=== PATIENT | female | born 1975 | race African-American/Black ===

== ENCOUNTER 2020-08-07 21:56 | Inpatient (IN) | payer MEDICAID ==
[~2020-08-07] VITALS: Ht 170.2 cm; Wt 122.0 kg
[~2020-08-07 21:56] MED LIST: BENZ1TAB7 PO; HYDR25TA4 PO; METO25TA6 PO; PALI234D IM; SERT-433 PO
[2020-08-07] MEDS ORDERED: acetaminophen 325mg tablet PO ONE (22:05)
[2020-08-07 22:21] LABS: BASOPHILS # (AUTO) 0.1 X10'3 (0-0.2); BASOPHILS % (AUTO) 0.2 % (0-1); EOSINOPHILS # (AUTO) 0.1 X10'3 (0-0.9); HEMOGLOBIN 11.9 g/dl (12.0-16.0); NEUTROPHILS % (AUTO) 87.6 % (42-75); RED CELL DISTRIBUTION WIDTH 14.1 % (11.5-14.5)
[2020-08-07 22:23] LABS: EOSINOPHILS % (AUTO) 0.2 % (0-6); HEMATOCRIT 35.5 % (35.0-45.0); LYMPHOCYTES # (AUTO) 1.5 X10'3 (1.1-4.8); LYMPHOCYTES % (AUTO) 5.3 % (21-51); MEAN CORPUSCULAR HEMOGLOBIN 27.8 PG (27.0-31.0); MEAN CORPUSCULAR HGB CONC 33.5 g/dL (33.0-36.5); MEAN PLATELET VOLUME 8.2 FL (7.4-10.4); MONOCYTES # (AUTO) 1.8 X10'3 (0-0.9); MONOCYTES % (AUTO) 6.7 % (2-12); NEUTROPHILS # (AUTO) 24.1 X10'3 (1.8-7.7); PLATELET COUNT 646 X10'3 (140-440); RED BLOOD COUNT 4.28 X10'6 (4.20-5.60)
[2020-08-07 22:28] LABS: WHITE BLOOD COUNT 27.5 X10'3 (4.5-11.0)
[2020-08-07] MEDS ORDERED: morphine 10mg/ml inj. IV ONE (22:30)
[2020-08-07] MEDS ORDERED: NAPR-1166 PO (22:30)
[2020-08-07] MEDS ORDERED: BUS15T PO (22:30)
[2020-08-07] MEDS ORDERED: vancomycin/NS 1 GM ADD-VANTAGE 250 ML IV ONE (22:30)
[2020-08-07] MEDS ORDERED: HYDR50TA65 PO (22:30)
[2020-08-07] MEDS ORDERED: normal saline 1000ML IV soln IV ONE (22:30)
[2020-08-07] MEDS ORDERED: MIRT45TA83 PO (22:30)
[2020-08-07] MEDS ORDERED: LUMA42CA PO (22:30)
[2020-08-07] MEDS ORDERED: CefTRIAXone 2gm/D5W 50ml BAG 50 ML IV ONE (22:30)
--- NOTE | 2020-08-07 22:30 | NUR ---
Pt reported she is unable to urinate.
[2020-08-07 22:56] LABS: ALANINE AMINOTRANSFERASE 9 U/L (12-78); ALBUMIN 1.9 G/DL (3.4-5.0); ALBUMIN/GLOBULIN RATIO 0.3 (1.1-1.5); ALKALINE PHOSPHATASE 112 IU/L (46-116); ANION GAP 10 (8-16); ASPARTATE AMINO TRANSFERASE 10 U/L (10-37); BILIRUBIN,TOTAL 0.7 MG/DL (0.1-1.0); BLOOD UREA NITROGEN 20 MG/DL (7-18); BUN/CREATININE RATIO 13.6 (6.6-38.0); CALCIUM 9.3 MG/DL (8.5-10.1); CHLORIDE 93 MMOL/L (99-107); CREATININE 1.47 MG/DL (0.40-0.90); GLUCOSE 152 MG/DL (70-104); SODIUM 132 MMOL/L (135-145); TOTAL CARBON DIOXIDE 29.3 MMOL/L (24-32); eGFR 47 ML/MIN
[2020-08-07] MEDS ORDERED: iohexol 300mg/ml 100ml inj. ONE (22:56)
[2020-08-07] MEDS ORDERED: HYDROmorphone 1 mg/ml syringe IV ONE (23:05)
[2020-08-07 23:07] LABS: PLATELET ESTIMATE INCREASED; TOTAL CELLS COUNTED 100; TOXIC VACUOLATION 1+
[2020-08-07 23:08] LABS: LARGE PLATELETS FEW; TOXIC GRANULATION 1+
[2020-08-07 23:09] LABS: HCG SERUM QL NEGATIVE
[2020-08-07 23:09] LABS: POLYCHROMASIA FEW
[2020-08-07] MEDS ORDERED: potassium Cl 20 mEq SR tablet PO STA (23:11)
--- NOTE | 2020-08-07 23:23 | NUR ---
PT taken for CT scan.
--- NOTE | 2020-08-07 23:33 | NUR ---
Pt returned from CT and is observed to have itching sensation. Addendum: 08/07/20 at 2339 by REJI MD assessed pt at bedside. Pt denies any diff breathing, only itching sensation. Pt stated she started feeling the itching sensation after CT contrast was administered. MD to order Benadryl 25MG as intervention.
[2020-08-07 23:37] LABS: C-REACTIVE PROTEIN 34.16 MG/DL (0.0-0.5)
[2020-08-07] MEDS ORDERED: diphenhydrAMINE 50 mg/ml inj IV ONE ×2 (23:40→23:55)
[2020-08-08] MEDS ORDERED: LORazepam 2 mg/ml vial IV ONE (00:25)
[2020-08-08] MEDS ORDERED: hydrOXYzine 25 MG tablet PO ONE (00:40)
[2020-08-08] MEDS ORDERED: potassium Cl 20 mEq SR tablet PO PRN (00:50)
[2020-08-08] MEDS ORDERED: potassium Cl 40MEQ/1/2NS 520ml 520 ML IV PRN ×2 (00:50)
[2020-08-08] MEDS ORDERED: morphine 2 MG/ML inj. syringe IV PRN (00:50)
[2020-08-08] MEDS ORDERED: ondansetron/PF 4mg/2ml inj IV PRN (00:50)
[2020-08-08] MEDS ORDERED: hydrOXYzine 25 MG tablet PO PRN (00:55)
[2020-08-08] MEDS: normal saline 1000ml 1,000 ML IV SCH ×3 (01:04→20:33)
--- NOTE | 2020-08-08 02:46 | NUR ---
Received report from ER nurse Anant. UA not collected at this time as it was reported patient unable to void. Room is ready for patient.
--- NOTE | 2020-08-08 03:02 | NUR ---
Pt currently resting in bed, pt notifed of bed transfer.
[2020-08-08 04:30] VITALS: BP 117/72
[2020-08-08] MEDS: potassium Cl 20 mEq SR tablet PO PRN ×2 (04:52→10:20)
[2020-08-08] MEDS: morphine 2 MG/ML inj. syringe IV PRN ×2 (04:53→10:24)
[2020-08-08 05:42] LABS: CLARITY,URINE SLIGHTLY CLOUDY (Clear); COLOR,URINE YELLOW (Yellow); GLUCOSE, URINE NEGATIVE (Neg); KETONES,URINE NEGATIVE (Neg); LEUKOCYTE ESTERASE ,URINE NEGATIVE (Neg); NITRITES, URINE NEGATIVE (Neg); OCCULT BLOOD,URINE LARGE (Neg); PROTEIN,URINE TRACE mg/dl (Neg)
[2020-08-08 05:44] LABS: UA COLLECTION TYPE CLN CATCH MIDSTREAM
[2020-08-08 05:49] LABS: BACTERIA,URINE 1+ /HPF (Neg); MUCUS STRANDS FEW /LPF (Neg); SQUAMOUS EPITHELIAL CELL,UR MODERATE /LPF (FEW)
--- NOTE | 2020-08-08 06:18 | NUR ---
Report given to Natasha MARIA.
[2020-08-08 06:30] VITALS: BP 113/72
[2020-08-08] MEDS: busPIRone 15mg tablet PO SCH ×2 (07:21→20:27)
[2020-08-08] MEDS: piperacillin/tazo 3.375gm/50ml 50 ML IV SCH ×3 (07:21→23:09)
[2020-08-08] MEDS: LUMATEPERONE TOSYLATE PO SCH (07:22)
[2020-08-08] MEDS: K and/or MAG REPLACEMENT MC SCH ×2 (07:22→20:00)
[2020-08-08] MEDS ORDERED: FLU VACC QS2020-21(6MOS UP)/PF 60 MCG/0.5 ML SYRINGE IMVAC ONE (10:00)
[2020-08-08 10:14] VITALS: BP 121/73
[2020-08-08] MEDS: vancomycin/NS 1 GM ADD-VANTAGE 250 ML IV SCH (13:10)
[2020-08-08 18:00] VITALS: BP 115/74
--- NOTE | 2020-08-08 18:27 | NUR ---
Problems reprioritized. Patient report given, questions answered & plan of care reviewed with CANDACE STAUFFER.
[2020-08-08] MEDS: mirtazapine 15mg tablet PO SCH (20:26)
[2020-08-08] MEDS: lactobacillus rhamnosus 10,000 MMU CELLS/CAPSULE PO SCH (20:27)
[2020-08-08] MEDS: heparin, porcine 5000 units/ml vial SQ SCH (20:32)
[2020-08-08 22:00] VITALS: BP 114/70
[2020-08-08] MEDS ORDERED: vancomycin/NS 1 GM ADD-VANTAGE 250 ML IV SCH (23:00)
[2020-08-09] MEDS: vancomycin/NS 1 GM ADD-VANTAGE 250 ML IV SCH ×2 (01:50→13:00)
[2020-08-09] MEDS: normal saline 1000ml 1,000 ML IV SCH ×3 (06:50→23:01)
[2020-08-09] MEDS: LUMATEPERONE TOSYLATE PO SCH (08:00)
[2020-08-09] MEDS: piperacillin/tazo 3.375gm/50ml 50 ML IV SCH (08:00)
[2020-08-09] MEDS: busPIRone 15mg tablet PO SCH ×2 (08:47→19:57)
[2020-08-09] MEDS: lactobacillus rhamnosus 10,000 MMU CELLS/CAPSULE PO SCH ×2 (08:47→19:57)
[2020-08-09] MEDS: heparin, porcine 5000 units/ml vial SQ SCH ×2 (08:47→20:04)
[2020-08-09 08:53] LABS: BASOPHILS # (AUTO) 0.1 X10'3 (0-0.2); BASOPHILS % (AUTO) 0.3 % (0-1); EOSINOPHILS # (AUTO) 0.2 X10'3 (0-0.9); EOSINOPHILS % (AUTO) 1.1 % (0-6); HEMATOCRIT 29.9 % (35.0-45.0); HEMOGLOBIN 9.8 g/dl (12.0-16.0); LYMPHOCYTES # (AUTO) 1.6 X10'3 (1.1-4.8); LYMPHOCYTES % (AUTO) 7.2 % (21-51); MEAN CORPUSCULAR HEMOGLOBIN 27.5 PG (27.0-31.0); MEAN CORPUSCULAR HGB CONC 32.7 g/dL (33.0-36.5); MEAN CORPUSCULAR VOLUME 84.1 FL (78-98); MEAN PLATELET VOLUME 8.2 FL (7.4-10.4); MONOCYTES # (AUTO) 1.9 X10'3 (0-0.9); MONOCYTES % (AUTO) 8.5 % (2-12); NEUTROPHILS # (AUTO) 18.5 X10'3 (1.8-7.7); NEUTROPHILS % (AUTO) 82.9 % (42-75); PLATELET COUNT 575 X10'3 (140-440); RED BLOOD COUNT 3.56 X10'6 (4.20-5.60); RED CELL DISTRIBUTION WIDTH 14.6 % (11.5-14.5); WHITE BLOOD COUNT 22.4 X10'3 (4.5-11.0)
[2020-08-09 09:30] LABS: ALANINE AMINOTRANSFERASE 6 U/L (12-78); ALBUMIN 1.3 G/DL (3.4-5.0); ALBUMIN/GLOBULIN RATIO 0.2 (1.1-1.5); ALKALINE PHOSPHATASE 94 IU/L (46-116); ANION GAP 11 (8-16); ASPARTATE AMINO TRANSFERASE 11 U/L (10-37); BILIRUBIN,TOTAL 0.3 MG/DL (0.1-1.0); BLOOD UREA NITROGEN 19 MG/DL (7-18); BUN/CREATININE RATIO 15.3 (6.6-38.0); CALCIUM 8.5 MG/DL (8.5-10.1); CHLORIDE 99 MMOL/L (99-107); CREATININE 1.24 MG/DL (0.40-0.90); GLUCOSE 90 MG/DL (70-104); POTASSIUM 4.1 MMOL/L (3.5-5.1); SODIUM 134 MMOL/L (135-145); TOTAL CARBON DIOXIDE 24.2 MMOL/L (24-32); TOTAL PROTEIN 6.7 G/DL (6.4-8.2); eGFR 57 ML/MIN
[2020-08-09] MEDS ORDERED: FLU VACC QS2020-21(6MOS UP)/PF 60 MCG/0.5 ML SYRINGE IMVAC ONE (10:00)
[2020-08-09 10:06] LABS: TOTAL CELLS COUNTED 100
[2020-08-09 10:09] LABS: GIANT PLATELET FEW; LARGE PLATELETS FEW; PLATELET ESTIMATE INCREASED
[2020-08-09 10:11] LABS: TOXIC GRANULATION 1+
[2020-08-09] MEDS: morphine 2 MG/ML inj. syringe IV PRN ×2 (10:41→17:57)
[2020-08-09] MEDS ORDERED: VANCOMYCIN LEVEL IV ONE (12:30)
[2020-08-09 18:00] VITALS: BP 108/69
[2020-08-09] MEDS: mirtazapine 15mg tablet PO SCH (19:57)
[2020-08-09] MEDS: K and/or MAG REPLACEMENT MC SCH (20:00)
[2020-08-09] MEDS: ceFAZolin/D5W- 1GM premix 50 ML IV SCH (20:13)
[2020-08-09 22:00] VITALS: BP 123/75
[2020-08-10] VITALS (24 sets, daily range): BP systolic 119–145; BP diastolic 68–100
[2020-08-10] MEDS: vancomycin/NS 1 GM ADD-VANTAGE 250 ML IV SCH (01:16)
[2020-08-10] MEDS: ceFAZolin/D5W- 1GM premix 50 ML IV SCH ×4 (02:47→19:47)
[2020-08-10] MEDS: morphine 2 MG/ML inj. syringe IV PRN (02:52)
--- NOTE | 2020-08-10 06:30 | NUR ---
Patient in room [facility]TH[facility] 4007. I have received report from Keena MARIA and had the opportunity to ask questions and assume patient care.
--- NOTE | 2020-08-10 06:30 | NUR ---
Patient in room [facility]TH[facility] 4007. I have received report from Keena MARIA and had the opportunity to ask questions and assume patient care.
[2020-08-10] MEDS: busPIRone 15mg tablet PO SCH ×2 (07:29→19:47)
[2020-08-10] MEDS: lactobacillus rhamnosus 10,000 MMU CELLS/CAPSULE PO SCH ×2 (07:30→19:47)
[2020-08-10] MEDS: heparin, porcine 5000 units/ml vial SQ SCH ×2 (07:30→19:48)
[2020-08-10] MEDS: K and/or MAG REPLACEMENT MC SCH ×2 (08:00→20:00)
[2020-08-10] MEDS: LUMATEPERONE TOSYLATE PO SCH (08:00)
[2020-08-10 08:14] LABS: BASOPHILS # (AUTO) 0.1 X10'3 (0-0.2); BASOPHILS % (AUTO) 0.5 % (0-1); EOSINOPHILS # (AUTO) 0.3 X10'3 (0-0.9); EOSINOPHILS % (AUTO) 1.8 % (0-6); HEMATOCRIT 28.4 % (35.0-45.0); HEMOGLOBIN 9.4 g/dl (12.0-16.0); LYMPHOCYTES # (AUTO) 2.3 X10'3 (1.1-4.8); LYMPHOCYTES % (AUTO) 13.9 % (21-51); MEAN CORPUSCULAR HEMOGLOBIN 27.9 PG (27.0-31.0); MEAN CORPUSCULAR HGB CONC 33.3 g/dL (33.0-36.5); MEAN CORPUSCULAR VOLUME 83.7 FL (78-98); MEAN PLATELET VOLUME 7.9 FL (7.4-10.4); MONOCYTES # (AUTO) 1.5 X10'3 (0-0.9); MONOCYTES % (AUTO) 9.1 % (2-12); NEUTROPHILS # (AUTO) 12.3 X10'3 (1.8-7.7); NEUTROPHILS % (AUTO) 74.7 % (42-75); PLATELET COUNT 601 X10'3 (140-440); RED BLOOD COUNT 3.39 X10'6 (4.20-5.60); RED CELL DISTRIBUTION WIDTH 14.1 % (11.5-14.5); WHITE BLOOD COUNT 16.4 X10'3 (4.5-11.0)
[2020-08-10 08:33] LABS: ALANINE AMINOTRANSFERASE 9 U/L (12-78); ALBUMIN 1.3 G/DL (3.4-5.0); ALBUMIN/GLOBULIN RATIO 0.2 (1.1-1.5); ALKALINE PHOSPHATASE 81 IU/L (46-116); ANION GAP 9 (8-16); ASPARTATE AMINO TRANSFERASE 16 U/L (10-37); BILIRUBIN,TOTAL 0.2 MG/DL (0.1-1.0); BLOOD UREA NITROGEN 13 MG/DL (7-18); BUN/CREATININE RATIO 13.3 (6.6-38.0); CHLORIDE 100 MMOL/L (99-107); CREATININE 0.98 MG/DL (0.40-0.90); GLUCOSE 86 MG/DL (70-104); POTASSIUM 3.8 MMOL/L (3.5-5.1); SODIUM 133 MMOL/L (135-145); TOTAL CARBON DIOXIDE 23.8 MMOL/L (24-32); TOTAL PROTEIN 6.8 G/DL (6.4-8.2); eGFR 75 ML/MIN
[2020-08-10 10:08] LABS: TOTAL CELLS COUNTED 100
[2020-08-10 10:12] LABS: PLATELET ESTIMATE INCREASED
[2020-08-10 10:17] LABS: GIANT PLATELET FEW; LARGE PLATELETS FEW
[2020-08-10 10:21] LABS: TOXIC GRANULATION 1+
[2020-08-10 10:22] LABS: TOXIC VACUOLATION 1+
--- NOTE | 2020-08-10 12:37 | NUR ---
Patient doesn't want the Flu Vac today, wants to wait until discharging home.
[2020-08-10] MEDS: VANCOmycin 1250MG/NS 250ml Bag 250 ML IV SCH (12:46)
[2020-08-10] MEDS: normal saline 1000ml 1,000 ML IV SCH ×2 (12:50→22:50)
--- NOTE | 2020-08-10 13:22 | NUR ---
Spoke with primary nurse, Patient will be having and I&D of left tibial abscess today. Supplies given to nurse.
[2020-08-10 13:42] LABS: HIV ANTIBODY 1&2 RAPID NON-REACTIVE (Neg)
[2020-08-10] MEDS ORDERED: ringers solution, lacted 1,000 ML IV SCH (16:00)
[2020-08-10] MEDS ORDERED: meperidine/PF 25mg/ml syringe IV PRN ×2 (16:00)
[2020-08-10] MEDS ORDERED: ondansetron/PF 4mg/2ml inj IV PRN (16:00)
[2020-08-10] MEDS ORDERED: morphine 2 MG/ML inj. syringe IV PRN (16:00)
[2020-08-10] MEDS ORDERED: proCHLORperazine 10 MG/2 ml inj IV PRN (16:00)
[2020-08-10] MEDS ORDERED: morphine 4 MG/ML inj SYRINge IV PRN (16:00)
[2020-08-10] MEDS ORDERED: fentaNYL/PF 50MCG/1 ML 2ML syringe ONE ×2 (16:07→16:20)
[2020-08-10] MEDS ORDERED: midazolam 1 mg/ML 2ml injection ONE (16:07)
--- NOTE | 2020-08-10 16:23 | NUR ---
Problems reprioritized. Patient report given, questions answered & plan of care reviewed with Saul MARIA.
[2020-08-10] MEDS ORDERED: ondansetron/PF 4mg/2ml inj ONE (16:25)
[2020-08-10] MEDS ORDERED: LIDOcaine 2% (20mg/ml) 5ml vial ONE (16:25)
[2020-08-10] MEDS ORDERED: succinylcholine 20mg/ml inj IV ONE (16:25)
[2020-08-10] MEDS ORDERED: dexamethasone sod phosphate 4mg/ml inj. ONE (16:25)
[2020-08-10] MEDS ORDERED: propofol inj 20 ML IV ONE (16:25)
[2020-08-10] MEDS ORDERED: metoprolol tartrate 1mg/ml inj IV ONE (16:42)
[2020-08-10] MEDS ORDERED: glycopyrrolate 0.2mg/ml inj ONE (16:43)
[2020-08-10] MEDS ORDERED: neostigmine methylsulfate 1 MG/ML 10ml vial ONE (16:43)
[2020-08-10] MEDS ORDERED: rocuronium 10mg/ml inj IV ONE (16:43)
--- NOTE | 2020-08-10 17:04 | NUR ---
Received from OR via BED, accompanied by Anesthesiologist DR WADE and report given by Anesthesiologist. PT DROWSY, PAINFUL. LEFT LOWER LEG W/WOUND VAC DRSG COVERING INCISION/FOAM TO LCS 125MMHG W/S/S DRAINAGE IN TUBING. LEFT FOOT 3+EDEMA. PIV OUT AND LYING IN BED NEXT TO PTS ARM, STARTED NEW 20 GAUGE PIV TO LEFT HAND, PAIN MEDICATION GIVEN W/RELIF IN PAIN. Addendum: 08/10/20 at 1920 by Margaret Birmingham RN Amended: Links added.
[2020-08-10] MEDS: meperidine/PF 25mg/ml syringe IV PRN ×2 (17:30→17:36)
--- NOTE | 2020-08-10 17:58 | NUR ---
received report on pt in recovery room by reading recovery teacher. Pt had I&D of left lower extremities with wound vac placement at 125. Has about 30cc serous sang drainage, New 20g PIV left hand. ESBL 150ml, NS 600ml, Demerol for pain. Pt will be transferred after shift change.
--- NOTE | 2020-08-10 18:15 | NUR ---
Patient in room ORTH[facility] 4007. I have received report from CANDACE Hughes and had the opportunity to ask questions and assume patient care.
--- NOTE | 2020-08-10 18:54 | NUR ---
Report called to receiving nurse. Transferred via BED, TONGUE RING ONLY Belongings SENT W/PT TO ROOM 4007. RECEIVING RN AT BEDSIDE TO RECEIVE PT. BLL, CALL LIGHT GIVEN, SIDE RAILS UP X 2. Special Issues communicated to receiving nurse. YES. Addendum: 08/10/20 at 1925 by Margaret Birmingham RN Amended: Links added.
[2020-08-10] MEDS: mirtazapine 15mg tablet PO SCH (19:48)
[2020-08-10] MEDS: HYDROcodone/acetaminophen 10/325mg tab PO PRN (21:07)
[2020-08-11] VITALS (7 sets, daily range): BP systolic 127–150; BP diastolic 64–88
[2020-08-11] MEDS: VANCOmycin 1250MG/NS 250ml Bag 250 ML IV SCH ×2 (01:18→12:29)
[2020-08-11] MEDS: HYDROcodone/acetaminophen 10/325mg tab PO PRN ×4 (01:18→19:41)
[2020-08-11] MEDS: ceFAZolin/D5W- 1GM premix 50 ML IV SCH ×4 (02:04→19:42)
--- NOTE | 2020-08-11 06:15 | NUR ---
Problems reprioritized. Patient report given, questions answered & plan of care reviewed with CANDACE Hughes.
[2020-08-11] MEDS: K and/or MAG REPLACEMENT MC SCH ×2 (08:00→19:43)
[2020-08-11] MEDS: LUMATEPERONE TOSYLATE PO SCH (08:00)
[2020-08-11 08:06] LABS: BASOPHILS % (AUTO) 0.3 % (0-1); EOSINOPHILS % (AUTO) 0 % (0-6); HEMATOCRIT 27.6 % (35.0-45.0); HEMOGLOBIN 9.1 g/dl (12.0-16.0); LYMPHOCYTES # (AUTO) 1.3 X10'3 (1.1-4.8); LYMPHOCYTES % (AUTO) 8.4 % (21-51); MEAN CORPUSCULAR HEMOGLOBIN 27.5 PG (27.0-31.0); MEAN CORPUSCULAR VOLUME 83.3 FL (78-98); MONOCYTES # (AUTO) 1.1 X10'3 (0-0.9); MONOCYTES % (AUTO) 7.3 % (2-12); NEUTROPHILS # (AUTO) 12.9 X10'3 (1.8-7.7); PLATELET COUNT 635 X10'3 (140-440); RED BLOOD COUNT 3.32 X10'6 (4.20-5.60); RED CELL DISTRIBUTION WIDTH 14.4 % (11.5-14.5); WHITE BLOOD COUNT 15.3 X10'3 (4.5-11.0)
[2020-08-11] MEDS: normal saline 1000ml 1,000 ML IV SCH ×2 (08:16→21:17)
[2020-08-11 08:46] LABS: ALANINE AMINOTRANSFERASE 11 U/L (12-78); ALBUMIN 1.4 G/DL (3.4-5.0); ALBUMIN/GLOBULIN RATIO 0.3 (1.1-1.5); ANION GAP 5 (8-16); ASPARTATE AMINO TRANSFERASE 13 U/L (10-37); BILIRUBIN,TOTAL 0.1 MG/DL (0.1-1.0); BLOOD UREA NITROGEN 9 MG/DL (7-18); BUN/CREATININE RATIO 10.8 (6.6-38.0); CALCIUM 8.7 MG/DL (8.5-10.1); CHLORIDE 104 MMOL/L (99-107); CREATININE 0.83 MG/DL (0.40-0.90); GLUCOSE 136 MG/DL (70-104); POTASSIUM 4.5 MMOL/L (3.5-5.1); SODIUM 134 MMOL/L (135-145); TOTAL CARBON DIOXIDE 24.7 MMOL/L (24-32); TOTAL PROTEIN 6.8 G/DL (6.4-8.2); eGFR > 90 ML/MIN
[2020-08-11] MEDS: lactobacillus rhamnosus 10,000 MMU CELLS/CAPSULE PO SCH ×2 (08:52→19:41)
[2020-08-11] MEDS: busPIRone 15mg tablet PO SCH ×2 (08:52→19:41)
[2020-08-11] MEDS: heparin, porcine 5000 units/ml vial SQ SCH ×2 (08:53→19:42)
[2020-08-11 09:11] LABS: ALKALINE PHOSPHATASE 73 IU/L (46-116)
[2020-08-11] MEDS ORDERED: FLU VACC QS2020-21(6MOS UP)/PF 60 MCG/0.5 ML SYRINGE IMVAC ONE (10:00)
[2020-08-11 11:16] LABS: PLATELET ESTIMATE INCREASED; TOTAL CELLS COUNTED 100
[2020-08-11 11:17] LABS: LARGE PLATELETS FEW
--- NOTE | 2020-08-11 18:00 | NUR ---
Problems reprioritized. Patient report given, questions answered & plan of care reviewed with Magalie MARIA.
--- NOTE | 2020-08-11 18:00 | NUR ---
Patient in room ORTH[facility] 4007. I have received report from CANDACE Hughes and had the opportunity to ask questions and assume patient care.
[2020-08-11 19:01] LABS: HBSAG SCREEN Negative (Negative); HEP A AB, IGM Negative (Negative); HEPATITIS C ANTIBODY <0.1 s/co ratio (0.0-0.9)
[2020-08-11] MEDS: mirtazapine 15mg tablet PO SCH (19:41)
[2020-08-12] MEDS ORDERED: VANCOMYCIN LEVEL IV ONE (00:30)
[2020-08-12] MEDS: VANCOmycin 1250MG/NS 250ml Bag 250 ML IV SCH (00:56)
[2020-08-12 01:00] LABS: BASOPHILS # (AUTO) 0.1 X10'3 (0-0.2); BASOPHILS % (AUTO) 0.4 % (0-1); MEAN PLATELET VOLUME 7.7 FL (7.4-10.4)
[2020-08-12 01:02] LABS: EOSINOPHILS # (AUTO) 0.1 X10'3 (0-0.9); EOSINOPHILS % (AUTO) 0.6 % (0-6); HEMATOCRIT 26.9 % (35.0-45.0); LYMPHOCYTES # (AUTO) 2.6 X10'3 (1.1-4.8); LYMPHOCYTES % (AUTO) 17.6 % (21-51); MEAN CORPUSCULAR HEMOGLOBIN 28.1 PG (27.0-31.0); MEAN CORPUSCULAR HGB CONC 33.7 g/dL (33.0-36.5); MEAN CORPUSCULAR VOLUME 83.4 FL (78-98); MONOCYTES # (AUTO) 1.3 X10'3 (0-0.9); MONOCYTES % (AUTO) 8.6 % (2-12); NEUTROPHILS # (AUTO) 10.6 X10'3 (1.8-7.7); NEUTROPHILS % (AUTO) 72.8 % (42-75); PLATELET COUNT 683 X10'3 (140-440); RED BLOOD COUNT 3.22 X10'6 (4.20-5.60); RED CELL DISTRIBUTION WIDTH 14.5 % (11.5-14.5); WHITE BLOOD COUNT 14.6 X10'3 (4.5-11.0)
[2020-08-12 01:05] LABS: ALANINE AMINOTRANSFERASE 12 U/L (12-78); ALBUMIN 1.4 G/DL (3.4-5.0); ALBUMIN/GLOBULIN RATIO 0.3 (1.1-1.5); ALKALINE PHOSPHATASE 76 IU/L (46-116); ANION GAP 4 (8-16); ASPARTATE AMINO TRANSFERASE 16 U/L (10-37); BILIRUBIN,TOTAL 0.1 MG/DL (0.1-1.0); BLOOD UREA NITROGEN 10 MG/DL (7-18); BUN/CREATININE RATIO 10.1 (6.6-38.0); CALCIUM 8.4 MG/DL (8.5-10.1); CHLORIDE 104 MMOL/L (99-107); CREATININE 0.99 MG/DL (0.40-0.90); GLUCOSE 128 MG/DL (70-104); SODIUM 135 MMOL/L (135-145); TOTAL CARBON DIOXIDE 26.9 MMOL/L (24-32); TOTAL PROTEIN 6.6 G/DL (6.4-8.2); VANCOMYCIN,TROUGH 14.1 UG/ML (6.0-14.0); eGFR 74 ML/MIN
[2020-08-12] MEDS: ceFAZolin/D5W- 1GM premix 50 ML IV SCH ×4 (02:00→19:17)
[2020-08-12 03:23] LABS: ANISOCYTOSIS 1+; HYPOCHROMASIA 1+; LARGE PLATELETS FEW; PLATELET ESTIMATE INCREASED; TOTAL CELLS COUNTED 100
[2020-08-12] MEDS: normal saline 1000ml 1,000 ML IV SCH ×3 (04:50→22:29)
--- NOTE | 2020-08-12 06:22 | NUR ---
Problems reprioritized. Patient report given, questions answered & plan of care reviewed with CANDACE Macedo.
--- NOTE | 2020-08-12 06:34 | NUR ---
Patient in room [facility]TH[facility] 4007. I have received report from Magalie MARIA and had the opportunity to ask questions and assume patient care.
[2020-08-12 07:00] VITALS: BP 149/99
[2020-08-12] MEDS: busPIRone 15mg tablet PO SCH ×2 (07:14→19:13)
[2020-08-12] MEDS: lactobacillus rhamnosus 10,000 MMU CELLS/CAPSULE PO SCH ×2 (07:14→19:13)
[2020-08-12] MEDS: heparin, porcine 5000 units/ml vial SQ SCH ×2 (07:15→19:15)
[2020-08-12] MEDS: HYDROcodone/acetaminophen 10/325mg tab PO PRN ×3 (07:15→19:14)
[2020-08-12] MEDS: LUMATEPERONE TOSYLATE PO SCH (07:22)
[2020-08-12] MEDS: K and/or MAG REPLACEMENT MC SCH ×2 (08:00→19:17)
[2020-08-12 10:00] VITALS: BP 118/73
--- NOTE | 2020-08-12 16:48 | NUR ---
patient given Clyde x2 for 8/10 pain with effect. left leg wound continues with wound vac @125mls. cannister changed. 120mls sero sang drainage observed. dr Navarro gave order ok for patient to sit in chair, not to work with PT yet. PT aware. All cares given. will continue to monitor.
[2020-08-12 18:00] VITALS: BP 134/92
--- NOTE | 2020-08-12 18:28 | NUR ---
Problems reprioritized. Patient report given, questions answered & plan of care reviewed with robert MARIA.
[2020-08-12] MEDS: mirtazapine 15mg tablet PO SCH (19:15)
[2020-08-12 22:00] VITALS: BP 109/88
[2020-08-13] MEDS: ceFAZolin/D5W- 1GM premix 50 ML IV SCH ×4 (01:40→20:22)
[2020-08-13] MEDS: HYDROcodone/acetaminophen 10/325mg tab PO PRN (04:59)
[2020-08-13 06:00] VITALS: BP 133/86
--- NOTE | 2020-08-13 06:38 | NUR ---
Problems reprioritized. Patient report given, questions answered & plan of care reviewed with Sharona MARIA.
[2020-08-13 07:21] LABS: BASOPHILS # (AUTO) 0.1 X10'3 (0-0.2); BASOPHILS % (AUTO) 0.7 % (0-1); EOSINOPHILS # (AUTO) 0.3 X10'3 (0-0.9); MEAN PLATELET VOLUME 7.4 FL (7.4-10.4)
[2020-08-13 07:22] LABS: EOSINOPHILS % (AUTO) 2.1 % (0-6); HEMATOCRIT 26.1 % (35.0-45.0); LYMPHOCYTES # (AUTO) 3.7 X10'3 (1.1-4.8); LYMPHOCYTES % (AUTO) 23.9 % (21-51); MEAN CORPUSCULAR HEMOGLOBIN 28.6 PG (27.0-31.0); MEAN CORPUSCULAR HGB CONC 34.4 g/dL (33.0-36.5); MEAN CORPUSCULAR VOLUME 83.2 FL (78-98); MONOCYTES # (AUTO) 1.1 X10'3 (0-0.9); MONOCYTES % (AUTO) 7.2 % (2-12); NEUTROPHILS # (AUTO) 10.1 X10'3 (1.8-7.7); NEUTROPHILS % (AUTO) 66.1 % (42-75); PLATELET COUNT 760 X10'3 (140-440); RED BLOOD COUNT 3.14 X10'6 (4.20-5.60); RED CELL DISTRIBUTION WIDTH 14.5 % (11.5-14.5); WHITE BLOOD COUNT 15.3 X10'3 (4.5-11.0)
[2020-08-13 07:24] LABS: ALANINE AMINOTRANSFERASE 10 U/L (12-78); ALBUMIN 1.4 G/DL (3.4-5.0); ALBUMIN/GLOBULIN RATIO 0.3 (1.1-1.5); ALKALINE PHOSPHATASE 70 IU/L (46-116); ANION GAP 8 (8-16); ASPARTATE AMINO TRANSFERASE 14 U/L (10-37); BILIRUBIN,TOTAL 0.1 MG/DL (0.1-1.0); BLOOD UREA NITROGEN 6 MG/DL (7-18); BUN/CREATININE RATIO 7.2 (6.6-38.0); CALCIUM 8.2 MG/DL (8.5-10.1); CHLORIDE 105 MMOL/L (99-107); CREATININE 0.83 MG/DL (0.40-0.90); GLUCOSE 88 MG/DL (70-104); POTASSIUM 3.9 MMOL/L (3.5-5.1); SODIUM 138 MMOL/L (135-145); eGFR > 90 ML/MIN
[2020-08-13] MEDS: LUMATEPERONE TOSYLATE PO SCH (08:00)
[2020-08-13] MEDS: K and/or MAG REPLACEMENT MC SCH ×2 (08:00→20:00)
[2020-08-13] MEDS: lactobacillus rhamnosus 10,000 MMU CELLS/CAPSULE PO SCH ×2 (08:26→20:23)
[2020-08-13] MEDS: busPIRone 15mg tablet PO SCH ×2 (08:26→20:23)
[2020-08-13] MEDS: heparin, porcine 5000 units/ml vial SQ SCH ×2 (08:27→20:25)
[2020-08-13] MEDS: normal saline 1000ml 1,000 ML IV SCH ×2 (08:28→20:50)
[2020-08-13 09:19] LABS: NUCLEATED RED BLOOD CELLS 3 /100WBC (0-0); TOTAL CELLS COUNTED 100
[2020-08-13 09:20] LABS: PLATELET ESTIMATE INCREASED
[2020-08-13 09:36] LABS: LARGE PLATELETS FEW; POLYCHROMASIA 2+; TOXIC GRANULATION 1+; TOXIC VACUOLATION 1+
[2020-08-13 10:00] VITALS: BP 124/89
--- NOTE | 2020-08-13 13:38 | NUR ---
Initial: Pt admit DX LLE cellulitis/abscess s/p I&D w/ wound vac to L leg. PO 75-100% avg regular diet; double proteins TIDWM added given wound healing needs. Dietary notified. [facility] 08/12. No nutrition concerns at this time. Will continue to monitor. Rec: 1. continue regular diet; double eggs WB/double meats BIDLD 2. routine bowel care 3. scaled wt this admit Addendum: 08/13/20 at [address] Amended: Links added.
[2020-08-13 18:00] VITALS: BP 146/94
[2020-08-13] MEDS: mirtazapine 15mg tablet PO SCH (20:23)
--- NOTE | 2020-08-13 21:00 | NUR ---
Oxycontin IR 10 mg given per pt's request for reports of pain 10 on 0-10 pain scale in lower back and legs at 2044. Pt resting comfortably in bed with eyes closed at this time. No acute distress observed Addendum: 08/14/20 at 0120 by Eduarda PEREZ RN Mistake in entry.
[2020-08-13 22:00] VITALS: BP 139/80
[2020-08-14] MEDS ORDERED: VANCOMYCIN LEVEL IV ONE (00:30)
[2020-08-14] MEDS: ceFAZolin/D5W- 1GM premix 50 ML IV SCH ×3 (02:38→15:30)
[2020-08-14 05:00] VITALS: BP 125/74
[2020-08-14] MEDS: normal saline 1000ml 1,000 ML IV SCH ×2 (06:50→09:32)
[2020-08-14 07:23] LABS: EOSINOPHILS # (AUTO) 0.4 X10'3 (0-0.9); HEMOGLOBIN 9.6 g/dl (12.0-16.0); LYMPHOCYTES # (AUTO) 3.4 X10'3 (1.1-4.8); MEAN CORPUSCULAR VOLUME 82.7 FL (78-98); MEAN PLATELET VOLUME 7.1 FL (7.4-10.4); NEUTROPHILS % (AUTO) 68.1 % (42-75)
[2020-08-14 07:24] LABS: BASOPHILS # (AUTO) 0.1 X10'3 (0-0.2); BASOPHILS % (AUTO) 0.4 % (0-1); EOSINOPHILS % (AUTO) 2.5 % (0-6); HEMATOCRIT 27.8 % (35.0-45.0); LYMPHOCYTES % (AUTO) 22.6 % (21-51); MEAN CORPUSCULAR HEMOGLOBIN 28.5 PG (27.0-31.0); MEAN CORPUSCULAR HGB CONC 34.4 g/dL (33.0-36.5); MONOCYTES % (AUTO) 6.4 % (2-12); NEUTROPHILS # (AUTO) 10.3 X10'3 (1.8-7.7); PLATELET COUNT 785 X10'3 (140-440); RED BLOOD COUNT 3.37 X10'6 (4.20-5.60); RED CELL DISTRIBUTION WIDTH 14.4 % (11.5-14.5); WHITE BLOOD COUNT 15.1 X10'3 (4.5-11.0)
[2020-08-14] MEDS: busPIRone 15mg tablet PO SCH ×2 (07:50→19:36)
[2020-08-14] MEDS: lactobacillus rhamnosus 10,000 MMU CELLS/CAPSULE PO SCH ×2 (07:50→19:35)
[2020-08-14] MEDS: heparin, porcine 5000 units/ml vial SQ SCH ×2 (07:50→19:36)
[2020-08-14] MEDS: LUMATEPERONE TOSYLATE PO SCH (07:51)
[2020-08-14] MEDS: K and/or MAG REPLACEMENT MC SCH ×2 (08:00→19:06)
[2020-08-14 08:03] LABS: ALANINE AMINOTRANSFERASE 10 U/L (12-78); ALBUMIN 1.4 G/DL (3.4-5.0); ALBUMIN/GLOBULIN RATIO 0.3 (1.1-1.5); ALKALINE PHOSPHATASE 66 IU/L (46-116); ANION GAP 4 (8-16); ASPARTATE AMINO TRANSFERASE 11 U/L (10-37); BILIRUBIN,TOTAL 0.1 MG/DL (0.1-1.0); BLOOD UREA NITROGEN 5 MG/DL (7-18); BUN/CREATININE RATIO 6.7 (6.6-38.0); CALCIUM 8.7 MG/DL (8.5-10.1); CHLORIDE 107 MMOL/L (99-107); CREATININE 0.75 MG/DL (0.40-0.90); GLUCOSE 101 MG/DL (70-104); POTASSIUM 3.8 MMOL/L (3.5-5.1); SODIUM 137 MMOL/L (135-145); TOTAL CARBON DIOXIDE 25.6 MMOL/L (24-32); eGFR > 90 ML/MIN
[2020-08-14 10:00] VITALS: BP_SYST 101; BP_SYST 144; BP_DIAS 52; BP_DIAS 92
[2020-08-14 10:04] LABS: PLATELET ESTIMATE INCREASED; TOTAL CELLS COUNTED 100
[2020-08-14 10:05] LABS: LARGE PLATELETS FEW; POLYCHROMASIA 1+
[2020-08-14] MEDS: HYDROcodone/acetaminophen 10/325mg tab PO PRN ×2 (10:47→15:31)
[2020-08-14] MEDS ORDERED: morphine 4 MG/ML inj SYRINge IV PRN (12:30)
[2020-08-14 12:34] VITALS: BP 143/100
[2020-08-14] MEDS ORDERED: VANCOmycin 1250MG/NS 250ml Bag 250 ML IV SCH (13:00)
[2020-08-14 18:00] VITALS: BP 136/88
--- NOTE | 2020-08-14 18:20 | NUR ---
Patient in room [facility]TH[facility] 4007. I have received report from CANDACE Tabor and had the opportunity to ask questions and assume patient care.
--- NOTE | 2020-08-14 18:40 | NUR ---
Report to Nikki MARIA
[2020-08-14] MEDS: linezolid 600mg tablet PO SCH (19:35)
[2020-08-14 22:00] VITALS: BP 142/97
--- NOTE | 2020-08-14 22:25 | NUR ---
Problems reprioritized. Patient report given, questions answered & plan of care reviewed with CANDACE Alvarado.
--- NOTE | 2020-08-14 22:35 | NUR ---
Received report from Nikki MARIA, assumed care of patient. Reviewed charting and at this time in agreement.
[2020-08-15] MEDS: normal saline 1000ml 1,000 ML IV SCH ×3 (04:56→19:23)
[2020-08-15 06:00] VITALS: BP 137/87
--- NOTE | 2020-08-15 06:29 | NUR ---
Report given to Sharona MARIA.
[2020-08-15 07:25] LABS: BASOPHILS # (AUTO) 0.2 X10'3 (0-0.2); BASOPHILS % (AUTO) 1.2 % (0-1); EOSINOPHILS # (AUTO) 0.4 X10'3 (0-0.9); EOSINOPHILS % (AUTO) 2.8 % (0-6); HEMATOCRIT 28.4 % (35.0-45.0); HEMOGLOBIN 9.5 g/dl (12.0-16.0); LYMPHOCYTES # (AUTO) 3.1 X10'3 (1.1-4.8); LYMPHOCYTES % (AUTO) 21.2 % (21-51); MEAN CORPUSCULAR HEMOGLOBIN 27.9 PG (27.0-31.0); MEAN CORPUSCULAR HGB CONC 33.3 g/dL (33.0-36.5); MEAN CORPUSCULAR VOLUME 83.6 FL (78-98); MEAN PLATELET VOLUME 7.4 FL (7.4-10.4); MONOCYTES # (AUTO) 0.9 X10'3 (0-0.9); MONOCYTES % (AUTO) 5.9 % (2-12); NEUTROPHILS % (AUTO) 68.9 % (42-75); PLATELET COUNT 806 X10'3 (140-440); RED CELL DISTRIBUTION WIDTH 14.5 % (11.5-14.5); WHITE BLOOD COUNT 14.5 X10'3 (4.5-11.0)
[2020-08-15] MEDS: LUMATEPERONE TOSYLATE PO SCH (08:00)
[2020-08-15] MEDS: K and/or MAG REPLACEMENT MC SCH ×2 (08:00→19:19)
[2020-08-15 08:17] LABS: ALANINE AMINOTRANSFERASE 12 U/L (12-78); ALBUMIN 1.6 G/DL (3.4-5.0); ALBUMIN/GLOBULIN RATIO 0.4 (1.1-1.5); ALKALINE PHOSPHATASE 64 IU/L (46-116); ANION GAP 7 (8-16); ASPARTATE AMINO TRANSFERASE 14 U/L (10-37); BILIRUBIN,TOTAL 0.1 MG/DL (0.1-1.0); BLOOD UREA NITROGEN 5 MG/DL (7-18); BUN/CREATININE RATIO 6.1 (6.6-38.0); CALCIUM 8.5 MG/DL (8.5-10.1); CHLORIDE 105 MMOL/L (99-107); CREATININE 0.82 MG/DL (0.40-0.90); GLUCOSE 96 MG/DL (70-104); POTASSIUM 3.8 MMOL/L (3.5-5.1); SODIUM 136 MMOL/L (135-145); TOTAL CARBON DIOXIDE 24.3 MMOL/L (24-32); TOTAL PROTEIN 6.1 G/DL (6.4-8.2); eGFR > 90 ML/MIN
[2020-08-15] MEDS: lactobacillus rhamnosus 10,000 MMU CELLS/CAPSULE PO SCH ×2 (08:48→19:20)
[2020-08-15] MEDS: busPIRone 15mg tablet PO SCH ×2 (08:48→19:20)
[2020-08-15] MEDS: linezolid 600mg tablet PO SCH ×2 (08:49→19:20)
[2020-08-15] MEDS: heparin, porcine 5000 units/ml vial SQ SCH ×2 (08:51→19:21)
[2020-08-15] MEDS ORDERED: LIDOcaine 4% (40 mg/ml) topical solution 50ml TP PRN (10:20)
--- NOTE | 2020-08-15 10:53 | NUR ---
Rock Consult: Pt seen by CHAPIS for written/verbal low-tyramine diet ed w/ RD contact information provided. CHAPIS encouraged pt to contact dietitian's office if further questions/concerns. Addendum: 08/15/20 at [address] Amended: Links added.
[2020-08-15 11:22] LABS: TOTAL CELLS COUNTED 100
[2020-08-15 11:23] LABS: PLATELET ESTIMATE INCREASED
[2020-08-15 11:24] LABS: SMUDGE CELLS FEW; TOXIC VACUOLATION FEW
--- NOTE | 2020-08-15 11:44 | NUR ---
WOC ordered Lidocaine 4% in 50ml bottle for patients wound vac change.
--- NOTE | 2020-08-15 12:27 | NUR ---
PAGER ID: [phone] MESSAGE: [id number] dc today or tomorrow after wound vac dressing change w/lidocaine? RON [id number]
[2020-08-15 18:00] VITALS: BP 149/106
--- NOTE | 2020-08-15 18:43 | NUR ---
Patient in room [facility]TH[facility] 4007. I have received report from Sharona MARIA and had the opportunity to ask questions and assume patient care.
[2020-08-15 22:00] VITALS: BP 152/98
[2020-08-16] MEDS ORDERED: VANCOMYCIN LEVEL IV ONE (00:30)
[2020-08-16] MEDS: normal saline 1000ml 1,000 ML IV SCH (04:59)
--- NOTE | 2020-08-16 06:17 | NUR ---
Problems reprioritized. Patient report given, questions answered & plan of care reviewed with Chris MARIA.
--- NOTE | 2020-08-16 06:18 | NUR ---
Patient in room [facility]TH[facility] 4007. I have received report from CANDACE Thompson and had the opportunity to ask questions and assume patient care.
[2020-08-16 06:55] VITALS: BP 143/90
--- NOTE | 2020-08-16 07:05 | NUR ---
Pt up and ambulating with PT.
[2020-08-16 07:45] LABS: BASOPHILS # (AUTO) 0.1 X10'3 (0-0.2); EOSINOPHILS # (AUTO) 0.3 X10'3 (0-0.9); MONOCYTES # (AUTO) 0.7 X10'3 (0-0.9)
[2020-08-16 07:49] LABS: BASOPHILS % (AUTO) 0.6 % (0-1); EOSINOPHILS % (AUTO) 2.7 % (0-6); HEMATOCRIT 27.7 % (35.0-45.0); LYMPHOCYTES % (AUTO) 25.2 % (21-51); MEAN CORPUSCULAR HEMOGLOBIN 27.5 PG (27.0-31.0); MEAN CORPUSCULAR HGB CONC 32.3 g/dL (33.0-36.5); MEAN CORPUSCULAR VOLUME 85.1 FL (78-98); MEAN PLATELET VOLUME 7.4 FL (7.4-10.4); MONOCYTES % (AUTO) 5.8 % (2-12); NEUTROPHILS # (AUTO) 7.9 X10'3 (1.8-7.7); NEUTROPHILS % (AUTO) 65.7 % (42-75); PLATELET COUNT 757 X10'3 (140-440); RED BLOOD COUNT 3.25 X10'6 (4.20-5.60); RED CELL DISTRIBUTION WIDTH 15.1 % (11.5-14.5)
[2020-08-16 07:50] LABS: ALANINE AMINOTRANSFERASE 12 U/L (12-78); ALBUMIN 1.7 G/DL (3.4-5.0); ALBUMIN/GLOBULIN RATIO 0.4 (1.1-1.5); ALKALINE PHOSPHATASE 59 IU/L (46-116); ANION GAP 6 (8-16); ASPARTATE AMINO TRANSFERASE 11 U/L (10-37); BILIRUBIN,TOTAL 0.1 MG/DL (0.1-1.0); BLOOD UREA NITROGEN 6 MG/DL (7-18); CALCIUM 8.5 MG/DL (8.5-10.1); CHLORIDE 106 MMOL/L (99-107); CREATININE 0.75 MG/DL (0.40-0.90); GLUCOSE 95 MG/DL (70-104); POTASSIUM 3.8 MMOL/L (3.5-5.1); SODIUM 137 MMOL/L (135-145); TOTAL CARBON DIOXIDE 25.3 MMOL/L (24-32); TOTAL PROTEIN 5.9 G/DL (6.4-8.2); eGFR > 90 ML/MIN
[2020-08-16] MEDS: lactobacillus rhamnosus 10,000 MMU CELLS/CAPSULE PO SCH (07:56)
[2020-08-16] MEDS: HYDROcodone/acetaminophen 10/325mg tab PO PRN (07:56)
[2020-08-16] MEDS: busPIRone 15mg tablet PO SCH (07:56)
[2020-08-16] MEDS: linezolid 600mg tablet PO SCH (07:56)
[2020-08-16] MEDS: heparin, porcine 5000 units/ml vial SQ SCH (07:57)
[2020-08-16] MEDS: LUMATEPERONE TOSYLATE PO SCH (08:00)
[2020-08-16] MEDS: K and/or MAG REPLACEMENT MC SCH (08:00)
[2020-08-16] MEDS ORDERED: morphine 2 MG/ML inj. syringe IV ONE (09:00)
[2020-08-16 10:00] VITALS: BP 158/86
[2020-08-16 10:15] LABS: LARGE PLATELETS FEW; PLATELET ESTIMATE INCREASED
[2020-08-16] MEDS ORDERED: LINE600T14 PO (10:52)
--- NOTE | 2020-08-16 11:09 | NUR ---
Blank Chambers in to see patient. Patient concerned of new hair loss. There is size of volley ball of hair on patient's bedside. Dr. Chambers aware. No new orders.
--- NOTE | 2020-08-16 11:48 | NUR ---
DISCUSSED WITH PATIENT DISCHARGE INSTRUCTIONS AND NEW PRESCRIPTIONS, FOLLOW UP APPOINTMENT WITH OUTPATIENT WOUND CARE AND HOME WOUND VAC. PATIENT VERBALIZES UNDERSTANDING. PATIENT READY FOR DC AND AWAITING FOR PERSONAL TRANSPORT.
--- NOTE | 2020-08-16 12:11 | NUR ---
Patient dc'd with all personal belongings. Home wound vac connected and patient educated use and care of home wound vac. patient verbalized understanding of all teaching and stated sh would call if she had any questions. Patient dc'd with friend in personal vehicle and in no s/s of apparent acute distress.
== END 2020-08-16 12:10 | disposition home health service (06) | DRG 720 ==
LOC: ER 21:56 → ED HOLD 08-08 00:47 → ORTHO 4S 08-08 04:31
PROVIDERS: ADMIT Internal Medicine; ATTEND Internal Medicine
PROC: BQ2S1ZZ Computerized Tomography (CT Scan) of Left Lower Extremity using Low Osmolar Contrast (ICD-10-PCS; 2020-08-07)
PROC: 0JBP0ZZ Excision of Left Lower Leg Subcutaneous Tissue and Fascia, Open Approach (ICD-10-PCS; principal; 2020-08-10 16:10)
PROC: 3E02340 Introduction of Influenza Vaccine into Muscle, Percutaneous Approach (ICD-10-PCS; 2020-08-11)
DX: A41.9 Sepsis, unspecified organism (principal); N17.0 Acute kidney failure with tubular necrosis; F15.10 Other stimulant abuse, uncomplicated; F14.10 Cocaine abuse, uncomplicated; D64.9 Anemia, unspecified; E66.01 Morbid (severe) obesity due to excess calories; E86.0 Dehydration; E87.6 Hypokalemia; F20.9 Schizophrenia, unspecified; F31.9 Bipolar disorder, unspecified; F41.9 Anxiety disorder, unspecified; D47.3 Essential (hemorrhagic) thrombocythemia; F17.210 Nicotine dependence, cigarettes, uncomplicated; L65.9 Nonscarring hair loss, unspecified; Z20.822 Contact with and (suspected) exposure to COVID-19; I12.9 Hypertensive chronic kidney disease with stage 1 through stage 4 chronic kidney disease, or unspecified chronic kidney disease; N18.9 Chronic kidney disease, unspecified; L02.416 Cutaneous abscess of left lower limb; L03.116 Cellulitis of left lower limb; R19.7 Diarrhea, unspecified; Z68.41 Body mass index [BMI] 40.0-44.9, adult; Z59.0 Homelessness; Z23 Encounter for immunization; Z88.5 Allergy status to narcotic agent; Z91.041 Radiographic dye allergy status; Z79.899 Other long term (current) drug therapy
CPT/HCPCS: 36415; 71045; 73701; 80053; 80074; 80202; 81001; 82948; 83605; 84132; 84145; 84703; 85007; 85008; 85025; 85610; 86140; 86703; 87040; 87070; 87075; 87077; 87081; 87088; 87186; 87635; 96365; 96366; 96367; 96375; 97110; 97116; 97161; 97530; 99285; A4618; A6449; A6550; A7000; G0378; J0330; J0690; J0696; J1100; J1170; J1200; J1644; J2001; J2060; J2175; J2250; J2270; J2405; J2543; J2704; J2710; J3010; J3370; J3490; J7030; Q0177; Q2039; Q9967

== ENCOUNTER → 2020-08-18 | Outpatient (CLI) | payer MEDICAID ==
[~2020-08-18] MED LIST changes: -BENZ1TAB7 PO; -HYDR25TA4 PO; +HYDR50TA65 PO; +LIDOcaine 4% (40 mg/ml) topical solution 50ml ONE; +LINE600T14 PO; +LUMA42CA PO; -METO25TA6 PO; +NAPR-1166 PO; -PALI234D IM; -SERT-433 PO
== END | disposition home or self-care (01) ==
LOC: WOUND CARE 08:13
PROVIDERS: ATTEND Nurse Practitioner
DX: T81.89XA Other complications of procedures, not elsewhere classified, initial encounter (principal); S81.802A Unspecified open wound, left lower leg, initial encounter; E11.622 Type 2 diabetes mellitus with other skin ulcer; L97.222 Non-pressure chronic ulcer of left calf with fat layer exposed; E11.22 Type 2 diabetes mellitus with diabetic chronic kidney disease; I12.9 Hypertensive chronic kidney disease with stage 1 through stage 4 chronic kidney disease, or unspecified chronic kidney disease; N18.9 Chronic kidney disease, unspecified; D64.9 Anemia, unspecified; E87.6 Hypokalemia; E66.01 Morbid (severe) obesity due to excess calories; F41.9 Anxiety disorder, unspecified; F32.9 Major depressive disorder, single episode, unspecified; F14.10 Cocaine abuse, uncomplicated; F17.210 Nicotine dependence, cigarettes, uncomplicated; F15.10 Other stimulant abuse, uncomplicated; F20.9 Schizophrenia, unspecified; Z79.899 Other long term (current) drug therapy; Z68.41 Body mass index [BMI] 40.0-44.9, adult; X58.XXXA Exposure to other specified factors, initial encounter; Y93.89 Activity, other specified; Y92.89 Other specified places as the place of occurrence of the external cause; Y83.8 Other surgical procedures as the cause of abnormal reaction of the patient, or of later complication, without mention of misadventure at the time of the procedure; Y92.238 Other place in hospital as the place of occurrence of the external cause; Y99.8 Other external cause status
CPT/HCPCS: 11042; 11043; 11046